=== PATIENT | male | born 1955 | race Caucasian/White ===

== ENCOUNTER 2017-09-02 13:40 | Emergency (ER) | payer OTHER ==
[~2017-09-02] VITALS: Ht 175.3 cm; Wt 72.7 kg
[~2017-09-02 13:40] MED LIST: LISI-661 PO; RISP0.2515 PO
[2017-09-02 14:02] LABS: BASOPHILS % (AUTO) 0.7 % (0.0-2.0); EOSINOPHILS % (AUTO) 0.6 % (1.0-6.0); HEMATOCRIT 37.9 % (41-53); HEMOGLOBIN 12.5 g/dL (13.5-17.5); LYMPHOCYTES # (AUTO) 1.6 K/uL (1.0-4.8); LYMPHOCYTES % (AUTO) 14.3 % (22.0-44.0); MEAN CORPUSCULAR HEMOGLOBIN 28.6 pg (26.0-34.0); MEAN CORPUSCULAR HGB CONC 32.9 G/dL (31.0-37.0); MEAN CORPUSCULAR VOLUME 87 fL (80-100); MONOCYTES # (AUTO) 0.8 K/uL (0.1-1.0); MONOCYTES % (AUTO) 6.9 % (2.0-9.0); NEUTROPHILS # (AUTO) 8.7 K/uL (1.8-7.7); NEUTROPHILS % (AUTO) 77.5 % (40.0-70.0); PLATELET COUNT (AUTO) 386 K/uL (150-450); RED BLOOD CELL COUNT(AUTO) 4.36 MIL/uL (4.50-5.90)
[2017-09-02 14:28] LABS: CALCIUM, TOTAL 8.9 mg/dL (8.8-10.5); CREATININE 1.32 mg/dL (0.60-1.30); POTASSIUM 3.9 mmol/L (3.5-5.1)
[2017-09-02 14:33] LABS: ALBUMIN 3.6 g/dL (3.4-5.0); BILIRUBIN,TOTAL 0.7 mg/dL (0.1-1.0); TOTAL PROTEIN, SERUM 8.4 g/dL (6.4-8.2)
[2017-09-02] MEDS ORDERED: KETOROLAC TROMETHAMINE 60 MG/2 ML VIAL IM ONE (15:30)
[2017-09-02] MEDS ORDERED: CloNIDine HCL 0.1 MG TABLET PO ONE (15:30)
[2017-09-02] MEDS ORDERED: CefTRIAXone SODIUM 1 GM in DEXTROSE 5%-WATER 10 ML IV ONE (17:00)
[2017-09-02 18:55] VITALS: BP 160/100
== END 2017-09-02 18:57 | disposition home or self-care (01) ==
LOC: EMS 13:41
DX: L03.114 Cellulitis of left upper limb (principal); I10 Essential (primary) hypertension; R07.9 Chest pain, unspecified; F15.10 Other stimulant abuse, uncomplicated; F17.210 Nicotine dependence, cigarettes, uncomplicated
CPT/HCPCS: 36415; 71045; 80053; 84484; 84550; 85025; 93005; 96365; 96372; 99285; J0696; J1885; J7060

== ENCOUNTER 2018-07-28 02:12 | Emergency (ER) | payer OTHER ==
[~2018-07-28] VITALS: Ht 175.3 cm; Wt 72.7 kg
[2018-07-28 02:52] LABS: BASOPHILS % (AUTO) 1.2 % (0.0-2.0); EOSINOPHILS % (AUTO) 2.5 % (1.0-6.0); HEMOGLOBIN 13.3 g/dL (13.5-17.5); LYMPHOCYTES # (AUTO) 1.2 K/uL (1.0-4.8); LYMPHOCYTES % (AUTO) 18.7 % (22.0-44.0); MEAN CORPUSCULAR HEMOGLOBIN 29.8 pg (26.0-34.0); MEAN CORPUSCULAR HGB CONC 33.2 G/dL (31.0-37.0); MEAN CORPUSCULAR VOLUME 90 fL (80-100); MONOCYTES # (AUTO) 0.6 K/uL (0.1-1.0); MONOCYTES % (AUTO) 9.1 % (2.0-9.0); NEUTROPHILS # (AUTO) 4.2 K/uL (1.8-7.7); NEUTROPHILS % (AUTO) 68.5 % (40.0-70.0); PLATELET COUNT (AUTO) 248 K/uL (150-450); RED BLOOD CELL COUNT(AUTO) 4.47 MIL/uL (4.50-5.90); RED CELL DISTRIBUTION WIDTH 16.1 % (11.5-14.5)
[2018-07-28 03:03] LABS: CALCIUM, TOTAL 8.9 mg/dL (8.8-10.5); CREATININE 1.43 mg/dL (0.60-1.30); POTASSIUM 3.8 mmol/L (3.5-5.1)
[2018-07-28 03:10] LABS: ALBUMIN 3.3 g/dL (3.4-5.0); BILIRUBIN,TOTAL 0.3 mg/dL (0.1-1.0); TOTAL PROTEIN, SERUM 7.5 g/dL (6.4-8.2)
[2018-07-28 04:31] LABS: APPEARANCE,URINE CLEAR (CLEAR); BILIRUBIN,URINE NEGATIVE (NEGATIVE); GLUCOSE, URINE (UA) NEGATIVE (NEGATIVE); KETONES,URINE NEGATIVE (NEGATIVE); LEUKOCYTE ESTERASE ,URINE NEGATIVE (NEGATIVE); NITRATE,URINE NEGATIVE (NEGATIVE); OCCULT BLOOD,URINE MODERATE (NEGATIVE); PROTEIN,URINE TRACE (NEGATIVE); UROBILINOGEN,URINE 0.2 mg/dL (<=1.0)
[2018-07-28 04:44] LABS: BACTERIA,URINE None Seen /HPF (None Seen); SQUAMOUS EPITHELIAL CELL,UR Rare /LPF (None Seen); WBC,URINE None Seen /HPF (0-5)
[2018-07-28] MEDS ORDERED: PredniSONE 20 MG TABLET PO ONE (06:30)
[2018-07-28] MEDS ORDERED: IPRATROPIUM BROMIDE 0.5 MG/2.5 ML NEB SOLUTION NEB ONE (06:30)
[2018-07-28] MEDS ORDERED: LISINOPRIL 10 MG TABLET PO ONE (06:30)
[2018-07-28] MEDS ORDERED: ALBUTEROL SULFATE 2.5 MG/0.5 ML NEB SOLUTION NEB ONE (06:30)
[2018-07-28] MEDS ORDERED: 0.9% SODIUM CHLORIDE 5 ML NEB SOLUTION NEB ONE (07:35)
[2018-07-28] MEDS ORDERED: AZITHROMYCIN 250 MG TABLET PO ONE (09:30)
[2018-07-28 10:12] VITALS: BP 172/109
== END 2018-07-28 10:15 | disposition home or self-care (01) ==
LOC: EMS 02:14
DX: J18.9 Pneumonia, unspecified organism (principal); M79.81 Nontraumatic hematoma of soft tissue; I10 Essential (primary) hypertension; F41.9 Anxiety disorder, unspecified; F20.9 Schizophrenia, unspecified; F17.210 Nicotine dependence, cigarettes, uncomplicated; F12.90 Cannabis use, unspecified, uncomplicated; F43.10 Post-traumatic stress disorder, unspecified
CPT/HCPCS: 36415; 71046; 71250; 74176; 80053; 81001; 83690; 84484; 85025; 93005; 94640; 99284; J7512

== ENCOUNTER 2019-07-27 11:46 | Emergency (ER) | payer OTHER ==
[~2019-07-27] VITALS: Ht 175.3 cm; Wt 77.3 kg
[2019-07-27] MEDS ORDERED: NAPROXEN 250 MG TABLET PO ONE (12:30)
[2019-07-27 14:08] VITALS: BP 132/82
== END 2019-07-27 14:22 | disposition home or self-care (01) ==
LOC: EMS 11:47
DX: M10.9 Gout, unspecified (principal); F10.10 Alcohol abuse, uncomplicated; I10 Essential (primary) hypertension; F41.9 Anxiety disorder, unspecified; F20.9 Schizophrenia, unspecified; F15.90 Other stimulant use, unspecified, uncomplicated